=== PATIENT | female | born 1965 | race Two or more races ===

== ENCOUNTER → 2017-03-09 | Outpatient (CLI) | payer MEDICAID ==
[~2017-03-09] VITALS: Ht 170.2 cm; Wt 112.5 kg
== END | disposition home or self-care (01) ==
LOC: Rad HDHVI 13:20
PROVIDERS: ATTEND Internal Medicine Cardiovascular Disease
DX: Z01.810 Encounter for preprocedural cardiovascular examination (principal); I10 Essential (primary) hypertension; J20.9 Acute bronchitis, unspecified; R05 Cough; F17.210 Nicotine dependence, cigarettes, uncomplicated
CPT/HCPCS: 93017

== ENCOUNTER → 2017-03-10 | Outpatient (CLI) | payer MEDICAID | END | disposition home or self-care (01) | LOC: Rad HDHVI 10:03 | PROVIDERS: ATTEND Internal Medicine Cardiovascular Disease | DX: Z01.818 Encounter for other preprocedural examination (principal); R94.31 Abnormal electrocardiogram [ECG] [EKG] | CPT/HCPCS: 93306 ==

== ENCOUNTER 2017-07-05 11:12 | Emergency (ER) | payer MEDICAID ==
[~2017-07-05] VITALS: Ht 170.2 cm; Wt 116.1 kg
[2017-07-05 11:44] VITALS: BP 119/71
== END 2017-07-05 12:55 | disposition home or self-care (01) ==
LOC: ER 11:12
DX: J20.9 Acute bronchitis, unspecified (principal); N39.0 Urinary tract infection, site not specified; E11.9 Type 2 diabetes mellitus without complications; K21.9 Gastro-esophageal reflux disease without esophagitis; F17.210 Nicotine dependence, cigarettes, uncomplicated

== ENCOUNTER 2017-09-08 11:58 | Emergency (ER) | payer MEDICAID ==
[~2017-09-08] VITALS: Ht 170.2 cm; Wt 112.5 kg
[2017-09-08 12:42] LABS: Basophils # (auto) 0.1 uL; Eosinophils # (auto) 0.1 uL; Eosinophils % (auto) 1.6 % (0.0-7.0); Hematocrit 42.8 % (36.0-46.0); Hemoglobin 14.1 g/dL (12.2-16.2); Lymphocytes # (auto) 2.4 uL; Lymphocytes % (auto) 26.5 % (10.0-50.0); Mean Corpuscular Hgb Conc. 32.9 g/dL (32.0-36.0); Mean Corpuscular Volume 85.1 fL (80.0-100.0); Monocytes # (auto) 0.6 uL; Monocytes % (auto) 7.2 % (0.0-12.0); Neutrophils # (auto) 5.7 uL; Neutrophils % (auto) 63.7 % (37.0-80.0); Nucleated Red Blood Cells % 0.1 %; Platelet Count (auto) 229 10^3/uL (140-450); Red Blood Cells 5.03 10^6/uL (4.0-5.20); White Blood Cell 8.9 10^3/uL (4.4-10.8)
[2017-09-08 13:04] LABS: Alanine Aminotransferase 52 U/L (13-56); Albumin 3.3 g/dL (3.4-5.0); Alkaline Phosphatase 106 U/L (45-117); Anion Gap 6 (5-15); Aspartate Aminotransferase 35 U/L (15-37); BUN/Creatinine Ratio 36.4; Bilirubin, Total 0.4 mg/dL (0.2-1.0); Blood Urea Nitrogen 20 mg/dL (7-18); Calcium 8.5 mg/dL (8.5-10.1); Carbon Dioxide 25 mmol/L (21-32); Chloride 108 mmol/L (98-107); GFR African American 151 mL/min; GFR Non-African American 125 mL/min; Glucose 137 mg/dL (74-106); Potassium 4.4 mmol/L (3.5-5.1); Sodium 139 mmol/L (136-145); Total Protein 7.6 g/dL (6.4-8.2)
[2017-09-08 16:07] VITALS: BP 104/63
== END 2017-09-08 16:10 | disposition home or self-care (01) ==
LOC: ER 11:58
DX: F41.9 Anxiety disorder, unspecified (principal); I11.0 Hypertensive heart disease with heart failure; I50.9 Heart failure, unspecified; K21.9 Gastro-esophageal reflux disease without esophagitis; E11.9 Type 2 diabetes mellitus without complications; Z87.891 Personal history of nicotine dependence
CPT/HCPCS: 36415; 71046; 80053; 83880; 84484; 85025; 93005

== ENCOUNTER 2018-02-17 20:01 | Inpatient (IN) | payer MEDICAID ==
[~2018-02-17] VITALS: Ht 170.2 cm; Wt 87.1 kg
[2018-02-17 21:57] LABS: Basophils # (auto) 0 uL; Basophils % (auto) 0.4 % (0.0-2.0); Eosinophils # (auto) 0 uL; Eosinophils % (auto) 0.3 % (0.0-7.0); Hematocrit 43.6 % (36.0-46.0); Hemoglobin 14.7 g/dL (12.2-16.2); Lymphocytes # (auto) 1.6 uL; Lymphocytes % (auto) 15.6 % (10.0-50.0); Mean Corpuscular Hemoglobin 28.8 pg (28.0-32.0); Mean Corpuscular Hgb Conc. 33.7 g/dL (32.0-36.0); Mean Corpuscular Volume 85.5 fL (80.0-100.0); Monocytes # (auto) 0.4 uL; Monocytes % (auto) 4.2 % (0.0-12.0); Neutrophils # (auto) 8.2 uL; Neutrophils % (auto) 79.5 % (37.0-80.0); Platelet Count (auto) 217 10^3/uL (140-450); White Blood Cell 10.4 10^3/uL (4.4-10.8)
[2018-02-17 22:14] LABS: Albumin 3.5 g/dL (3.4-5.0); Calcium 8.5 mg/dL (8.5-10.1); Potassium 4.1 mmol/L (3.5-5.1)
[2018-02-17 22:17] LABS: Bilirubin, Total 0.4 mg/dL (0.2-1.0); Total Protein 7.2 g/dL (6.4-8.2)
[2018-02-18] LABS: Urine Bacteria FEW /hpf (None Seen); Urine Blood Negative /uL (Negative); Urine Mucus FEW (None Seen); Urine Specific Gravity 1.029 (1.001-1.035); Urine WBC 21 /hpf (0 - 5)
[2018-02-18] MEDS ORDERED: ONDANSETRON HCL 4 MG/2 ML VIAL IV ONE (01:30)
[2018-02-18] MEDS ORDERED: MEPERIDINE HCL (50 MG/ML) 1 ML VIAL IV ONE (01:30)
[2018-02-18] MEDS ORDERED: LORazepam 0.5 MG TAB PO ONE (02:00)
[2018-02-18] MEDS ORDERED: NITROGLYCERIN 0.4 MG SL TAB SL PRN (07:45)
[2018-02-18] MEDS ORDERED: HYDROmorphone HCL 2 MG/ML VL IV PRN (07:45)
[2018-02-18] MEDS ORDERED: LORazepam 0.5 MG TAB PO PRN (07:45)
[2018-02-18] MEDS ORDERED: DEXTROSE (50%) 50ML SYRG IV PRN (07:45)
[2018-02-18] MEDS ORDERED: PROMETHAZINE HCL 25 MG/ML 1ML IV PRN (07:45)
[2018-02-18] MEDS ORDERED: MORPHINE SULF(PF) 0.5MG/ML 10ML VIAL IV PRN (07:45)
[2018-02-18] MEDS ORDERED: ACETAMINOPHEN 500 MG TAB PO PRN (07:45)
[2018-02-18] MEDS: SODIUM CHLORIDE 0.9% 1,000 ML IV SCH ×3 (08:15→19:42)
[2018-02-18] MEDS: HYDROcodone-ACET 5/325MG TAB PO PRN ×3 (08:16→21:34)
[2018-02-18] MEDS ORDERED: GASTROGRAFIN 30 ML SOL ONE (08:36)
[2018-02-18] MEDS ORDERED: IOHEXOL 300 MG/ML 100ML BOTTLE IJ ONE (08:37)
[2018-02-18] MEDS: cefTRIAXone 1GM/10ml IVPUSH 10 ML IV SCH (08:52)
[2018-02-18 08:53] LABS: INR 1.11 (0.9-1.15); Partial Thromboplastin Time 34.5 sec (23.78-33.04); Prothrombin Time 11.8 sec (9.27-12.13)
[2018-02-18 09:12] LABS: CRP High Sensitivity 0.1 mg/dL (< 0.3)
[2018-02-18] MEDS: FAMOTIDINE 20 MG TAB PO SCH ×2 (10:34→21:34)
[2018-02-18] MEDS: InsuLIN REG 1unit/0.01ml Soln (100units/ml) SC SCH ×2 (12:00→18:00)
[2018-02-18] MEDS: ACCU-CHEK COMFORT CURVE STRIP VI SCH ×3 (12:11→21:34)
[2018-02-18 17:00] VITALS: BP 148/87
[2018-02-18] MEDS ORDERED: OMEP20TA PO (19:00)
[2018-02-18] MEDS ORDERED: POTA10TA34 PO (19:01)
[2018-02-18 20:00] VITALS: BP 146/91
[2018-02-18] MEDS: TEMAZEPAM 15 MG CAP PO PRN (21:33)
[2018-02-18 22:00] VITALS: BP 146/91
[2018-02-19] MEDS: ACCU-CHEK COMFORT CURVE STRIP VI SCH ×4 (00:25→17:54)
[2018-02-19 05:00] VITALS: BP 135/84
[2018-02-19] MEDS: InsuLIN REG 1unit/0.01ml Soln (100units/ml) SC SCH ×4 (05:36→17:54)
[2018-02-19 06:36] LABS: Basophils # (auto) 0.1 uL; Basophils % (auto) 0.7 % (0.0-2.0); Eosinophils # (auto) 0.2 uL; Eosinophils % (auto) 2.5 % (0.0-7.0); Hematocrit 38.6 % (36.0-46.0); Hemoglobin 12.5 g/dL (12.2-16.2); Lymphocytes # (auto) 2.9 uL; Lymphocytes % (auto) 33.5 % (10.0-50.0); Mean Corpuscular Hgb Conc. 32.5 g/dL (32.0-36.0); Mean Corpuscular Volume 86.1 fL (80.0-100.0); Monocytes # (auto) 0.7 uL; Monocytes % (auto) 7.9 % (0.0-12.0); Neutrophils # (auto) 4.7 uL; Neutrophils % (auto) 55.4 % (37.0-80.0); Nucleated Red Blood Cells % 0.1 %; Platelet Count (auto) 171 10^3/uL (140-450); Red Blood Cells 4.48 10^6/uL (4.0-5.20); Red Cell Distribution Width 14.8 % (11.8-14.3); White Blood Cell 8.5 10^3/uL (4.4-10.8)
[2018-02-19 07:20] LABS: Albumin 2.8 g/dL (3.4-5.0); BUN/Creatinine Ratio 16.3; Bilirubin, Total 0.6 mg/dL (0.2-1.0); Calcium 8.3 mg/dL (8.5-10.1); Potassium 4.7 mmol/L (3.5-5.1); Total Protein 5.7 g/dL (6.4-8.2)
[2018-02-19] MEDS: cefTRIAXone 1GM/10ml IVPUSH 10 ML IV SCH (08:47)
[2018-02-19] MEDS: HYDROcodone-ACET 5/325MG TAB PO PRN ×2 (08:48→15:16)
[2018-02-19 09:00] VITALS: BP 143/90
[2018-02-19] MEDS: FAMOTIDINE 20 MG TAB PO SCH ×2 (10:59→21:30)
[2018-02-19 13:00] VITALS: BP_SYST 141; BP_SYST 155; BP_DIAS 76; BP_DIAS 88
[2018-02-19] MEDS: SODIUM CHLORIDE 0.9% 1,000 ML IV SCH ×2 (13:44→23:44)
[2018-02-19 17:00] VITALS: BP 137/83
[2018-02-19 20:00] VITALS: BP 139/75
[2018-02-19] MEDS ORDERED: KETOROLAC TROMETH 30 MG/ML 1ML VIAL IV ONE (20:45)
[2018-02-19] MEDS: TEMAZEPAM 15 MG CAP PO PRN (21:30)
[2018-02-20] MEDS: ACCU-CHEK COMFORT CURVE STRIP VI SCH ×4 (00:08→17:31)
[2018-02-20] MEDS: SODIUM CHLORIDE 0.9% 1,000 ML IV SCH (00:46)
[2018-02-20] MEDS: HYDROcodone-ACET 5/325MG TAB PO PRN ×3 (01:25→14:42)
[2018-02-20 05:59] LABS: Basophils # (auto) 0.1 uL; Basophils % (auto) 0.8 % (0.0-2.0); Eosinophils # (auto) 0.1 uL; Hematocrit 37.7 % (36.0-46.0); Hemoglobin 12.5 g/dL (12.2-16.2); Lymphocytes # (auto) 2.6 uL; Lymphocytes % (auto) 21.5 % (10.0-50.0); Mean Corpuscular Hemoglobin 28.5 pg (28.0-32.0); Mean Corpuscular Hgb Conc. 33.2 g/dL (32.0-36.0); Mean Corpuscular Volume 85.7 fL (80.0-100.0); Monocytes # (auto) 1.1 uL; Monocytes % (auto) 8.6 % (0.0-12.0); Neutrophils # (auto) 8.4 uL; Neutrophils % (auto) 68.1 % (37.0-80.0); Nucleated Red Blood Cells % 0.1 %; Platelet Count (auto) 178 10^3/uL (140-450); Red Cell Distribution Width 14.5 % (11.8-14.3); White Blood Cell 12.3 10^3/uL (4.4-10.8)
[2018-02-20 06:00] VITALS: BP 121/77
[2018-02-20] MEDS: InsuLIN REG 1unit/0.01ml Soln (100units/ml) SC SCH ×4 (06:00→17:31)
[2018-02-20 06:15] LABS: BUN/Creatinine Ratio 16.7; Calcium 7.9 mg/dL (8.5-10.1); Magnesium 2.3 mg/dL (1.6-2.6); Potassium 4.1 mmol/L (3.5-5.1)
[2018-02-20 08:00] VITALS: BP 132/73
[2018-02-20] MEDS ORDERED: GADOPENTETATE DIMEGLUMINE (10MMOL/20 ML) VIAL IV ONE (09:33)
[2018-02-20] MEDS: FAMOTIDINE 20 MG TAB PO SCH ×2 (10:53→21:49)
[2018-02-20] MEDS: cefTRIAXone 1GM/10ml IVPUSH 10 ML IV SCH (10:53)
[2018-02-20 12:00] VITALS: BP 130/82
[2018-02-20] MEDS ORDERED: LEVOFLOXACIN 500MG 100 ML IV ONE (13:30)
[2018-02-20] MEDS ORDERED: HYDROcodone-ACET 5/325MG TAB PO PRN (14:30)
[2018-02-20] MEDS ORDERED: POLYETHYLENE GLYCOL 17 GM PWDR PO ONE (15:30)
[2018-02-20 16:02] LABS: INR 1.15 (0.9-1.15); Partial Thromboplastin Time 35.2 sec (23.78-33.04); Prothrombin Time 12.2 sec (9.27-12.13)
[2018-02-20 17:00] VITALS: BP 121/73
[2018-02-20 21:37] VITALS: BP 106/67
[2018-02-20] MEDS: TEMAZEPAM 15 MG CAP PO PRN (21:49)
[2018-02-21] MEDS: HYDROcodone-ACET 5/325MG TAB PO PRN (03:00)
[2018-02-21 04:49] VITALS: BP 110/66
[2018-02-21] MEDS: SODIUM CHLORIDE 0.9% 1,000 ML IV SCH ×2 (05:44→06:07)
[2018-02-21] MEDS: InsuLIN REG 1unit/0.01ml Soln (100units/ml) SC SCH ×4 (06:00→18:00)
[2018-02-21] MEDS: ACCU-CHEK COMFORT CURVE STRIP VI SCH ×4 (06:21→18:23)
[2018-02-21 09:00] VITALS: BP 155/78
[2018-02-21] MEDS: LEVOFLOXACIN 500MG 100 ML IV SCH (09:59)
[2018-02-21] MEDS: FAMOTIDINE 20 MG TAB PO SCH ×2 (10:00→22:04)
[2018-02-21] MEDS ORDERED: MORPHINE SULFATE 8mg/ml INJ SDV IV PRN (11:15)
[2018-02-21] MEDS ORDERED: MEPERIDINE HCL (25 MG/ML) 1ML VIAL IM PRN (11:30)
[2018-02-21] MEDS ORDERED: MORPHINE SULF INJ 2 MG/ML SYRINGE 1ML IV PRN (11:30)
[2018-02-21] MEDS ORDERED: MEPERIDINE HCL (50 MG/ML) 1 ML VIAL ONE (11:45)
[2018-02-21] MEDS ORDERED: MEPERIDINE HCL (50 MG/ML) 1 ML VIAL IM PRN (11:45)
[2018-02-21] MEDS ORDERED: MEPERIDINE HCL (50 MG/ML) 1 ML VIAL IV PRN (12:00)
[2018-02-21 13:00] VITALS: BP 141/83
[2018-02-21] MEDS ORDERED: ceFAZolin 1GM/50ML 50 ML IV ONE (13:17)
[2018-02-21] MEDS ORDERED: PROPOFOL 10 MG/ML 20 ML IV ONE (13:29)
[2018-02-21] MEDS ORDERED: ROCURONIUM 10MG/ML 10ML VIAL IV ONE ×2 (13:29→13:30)
[2018-02-21] MEDS ORDERED: fentaNYL CITRATE 100 MCG/2 ML VL ONE ×2 (13:29→14:56)
[2018-02-21] MEDS ORDERED: MIDAZOLAM HCL 1MG/1ML-2 ML VIAL ONE (13:34)
[2018-02-21] MEDS ORDERED: LACTATED RINGER'S 1,000 ML IV SCH (15:06)
[2018-02-21] MEDS ORDERED: ePHEDrine SULFATE 50 MG/ML AMP IV PRN (15:15)
[2018-02-21] MEDS ORDERED: hydrALAZINE HCL 20 MG/ML VL IV PRN (15:15)
[2018-02-21] MEDS ORDERED: ONDANSETRON HCL 4 MG/2 ML VIAL IV ONE (15:15)
[2018-02-21] MEDS ORDERED: ONDANSETRON HCL 4 MG/2 ML VIAL IV PRN (15:15)
[2018-02-21] MEDS ORDERED: ACETAMINOPHEN IV 100 ML IV ONE (15:15)
[2018-02-21] MEDS: fentaNYL CITRATE 100 MCG/2 ML VL IV PRN ×4 (15:24→16:10)
[2018-02-21 17:00] VITALS: BP 139/85
[2018-02-21] MEDS: LACTATED RINGER'S 1,000 ML IV SCH (17:34)
[2018-02-21] MEDS: MEPERIDINE HCL (50 MG/ML) 1 ML VIAL IV PRN ×2 (18:41→22:45)
[2018-02-21 21:49] VITALS: BP 133/85
[2018-02-21] MEDS: TEMAZEPAM 15 MG CAP PO PRN (22:10)
[2018-02-22] MEDS: InsuLIN REG 1unit/0.01ml Soln (100units/ml) SC SCH ×4 (00:56→18:00)
[2018-02-22] MEDS: ACCU-CHEK COMFORT CURVE STRIP VI SCH ×4 (00:56→18:00)
[2018-02-22] MEDS: LACTATED RINGER'S 1,000 ML IV SCH ×2 (02:40→13:15)
[2018-02-22] MEDS: MEPERIDINE HCL (50 MG/ML) 1 ML VIAL IV PRN ×2 (02:47→06:50)
[2018-02-22 05:00] VITALS: BP 118/68
[2018-02-22 05:54] LABS: Basophils # (auto) 0 uL; Basophils % (auto) 0.1 % (0.0-2.0); Eosinophils # (auto) 0 uL; Hematocrit 33.8 % (36.0-46.0); Hemoglobin 11.3 g/dL (12.2-16.2); Lymphocytes % (auto) 9.2 % (10.0-50.0); Mean Corpuscular Hemoglobin 28.7 pg (28.0-32.0); Mean Corpuscular Hgb Conc. 33.3 g/dL (32.0-36.0); Mean Corpuscular Volume 86.2 fL (80.0-100.0); Monocytes # (auto) 0.9 uL; Monocytes % (auto) 8.3 % (0.0-12.0); Neutrophils # (auto) 8.9 uL; Neutrophils % (auto) 82.4 % (37.0-80.0); Platelet Count (auto) 215 10^3/uL (140-450); Red Blood Cells 3.92 10^6/uL (4.0-5.20); Red Cell Distribution Width 14.4 % (11.8-14.3); White Blood Cell 10.8 10^3/uL (4.4-10.8)
[2018-02-22 06:17] LABS: Albumin 2.2 g/dL (3.4-5.0); BUN/Creatinine Ratio 19.4; Potassium 4.8 mmol/L (3.5-5.1)
[2018-02-22 06:20] LABS: Bilirubin, Total 0.4 mg/dL (0.2-1.0); Total Protein 5.7 g/dL (6.4-8.2)
[2018-02-22 09:00] VITALS: BP 134/41
[2018-02-22] MEDS ORDERED: SIMETHICONE 80 MG CHEWABLE TABLET PO PRN (09:45)
[2018-02-22] MEDS ORDERED: HYDROcodone-ACET 5/325MG TAB PO PRN (09:45)
[2018-02-22] MEDS ORDERED: DOCUSATE SOD 100 MG CAP PO SCH (10:00)
[2018-02-22] MEDS: LEVOFLOXACIN 500MG 100 ML IV SCH (10:55)
[2018-02-22] MEDS: FAMOTIDINE 20 MG TAB PO SCH (10:56)
[2018-02-22] MEDS: HYDROcodone-ACET 5/325MG TAB PO PRN ×2 (12:59→18:40)
[2018-02-22 13:00] VITALS: BP 133/86
[2018-02-22 17:00] VITALS: BP 138/78
== END 2018-02-22 19:07 | disposition home or self-care (01) | DRG 513 ==
LOC: ER 20:01 → TELE 20:02 → TELE-WESTW 02-18 15:09
PROVIDERS: ADMIT Internal Medicine; ATTEND Internal Medicine
PROC: 0UT00ZZ Resection of Right Ovary, Open Approach (ICD-10-PCS; 2018-02-21)
PROC: 0UT50ZZ Resection of Right Fallopian Tube, Open Approach (ICD-10-PCS; principal; 2018-02-21 13:24)
DX: N83.511 Torsion of right ovary and ovarian pedicle (principal); I11.0 Hypertensive heart disease with heart failure; I50.9 Heart failure, unspecified; N39.0 Urinary tract infection, site not specified; E66.01 Morbid (severe) obesity due to excess calories; E11.9 Type 2 diabetes mellitus without complications; B96.89 Other specified bacterial agents as the cause of diseases classified elsewhere; F17.210 Nicotine dependence, cigarettes, uncomplicated; K21.9 Gastro-esophageal reflux disease without esophagitis; M54.5 Low back pain; K80.20 Calculus of gallbladder without cholecystitis without obstruction; N83.209 Unspecified ovarian cyst, unspecified side; N94.89 Other specified conditions associated with female genital organs and menstrual cycle; Z80.0 Family history of malignant neoplasm of digestive organs; Z80.8 Family history of malignant neoplasm of other organs or systems; Z98.84 Bariatric surgery status; Z90.49 Acquired absence of other specified parts of digestive tract; Z68.30 Body mass index [BMI] 30.0-30.9, adult
CPT/HCPCS: 36415; 71046; 72195; 74176; 74177; 76856; 80048; 80053; 80061; 81001; 82150; 82378; 82962; 83036; 83690; 83735; 84702; 85025; 85610; 85652; 85730; 86141; 86301; 86304; 86850; 86900; 86901; 86920; 87086; 87088; 87186; 96374; 96375; J0131; J0690; J1815; J1885; J1956; J2250; J2405; J2704

== ENCOUNTER 2019-07-16 14:40 | Emergency (ER) | payer MEDICAID ==
[~2019-07-16] VITALS: Ht 170.2 cm; Wt 64.0 kg
[~2019-07-16 14:40] MED LIST: OMEP20TA PO
[2019-07-16 16:34] LABS: Urine Bacteria NONE SEEN /hpf (None Seen); Urine Blood Negative /uL (Negative); Urine Mucus FEW (None Seen); Urine Specific Gravity 1.026 (1.001-1.035); Urine WBC 4 /hpf (0 - 5)
[2019-07-16] MEDS ORDERED: cefTRIAXone 1GM/50ML D5W 50 ML IV ONE (17:00)
[2019-07-16] MEDS ORDERED: SODIUM CHLORIDE 0.9% 1,000 ML IV ONE (17:00)
[2019-07-16 18:37] LABS: Basophils # (auto) 0.1 uL; Basophils % (auto) 1.1 % (0.0-2.0); Eosinophils # (auto) 0.1 uL; Eosinophils % (auto) 2.1 % (0.0-7.0); Hematocrit 41.4 % (36.0-46.0); Hemoglobin 13.6 g/dL (12.2-16.2); Lymphocytes # (auto) 1.7 uL; Mean Corpuscular Hemoglobin 28.8 pg (28.0-32.0); Mean Corpuscular Hgb Conc. 32.8 g/dL (32.0-36.0); Mean Corpuscular Volume 87.7 fL (80.0-100.0); Monocytes # (auto) 0.7 uL; Monocytes % (auto) 11.9 % (0.0-12.0); Neutrophils % (auto) 54.9 % (37.0-80.0); Nucleated Red Blood Cells % 0.2 %; Platelet Count (auto) 190 10^3/uL (140-450); Red Blood Cells 4.73 10^6/uL (4.0-5.20); Red Cell Distribution Width 13.6 % (11.8-14.3); White Blood Cell 5.5 10^3/uL (4.4-10.8)
[2019-07-16 18:53] LABS: Albumin 3.4 g/dL (3.4-5.0); Calcium 8.1 mg/dL (8.5-10.1); Potassium 4.3 mmol/L (3.5-5.1)
[2019-07-16 18:57] LABS: Bilirubin, Total 0.2 mg/dL (0.2-1.0); Total Protein 6.7 g/dL (6.4-8.2)
[2019-07-16 21:35] VITALS: BP 146/88
== END 2019-07-16 22:04 | disposition home or self-care (01) ==
LOC: ER 14:42
DX: S29.012A Strain of muscle and tendon of back wall of thorax, initial encounter (principal); S39.012A Strain of muscle, fascia and tendon of lower back, initial encounter; R07.89 Other chest pain; I11.0 Hypertensive heart disease with heart failure; I50.9 Heart failure, unspecified; E11.9 Type 2 diabetes mellitus without complications; K21.9 Gastro-esophageal reflux disease without esophagitis; Z87.891 Personal history of nicotine dependence; W22.8XXA Striking against or struck by other objects, initial encounter; Y93.89 Activity, other specified; Y92.89 Other specified places as the place of occurrence of the external cause; Y99.8 Other external cause status
CPT/HCPCS: 36415; 71045; 72070; 72100; 80053; 81001; 85025; 99284; J7030; 93005

== ENCOUNTER 2019-11-06 13:47 | Emergency (ER) | payer MEDICAID ==
[~2019-11-06] VITALS: Ht 170.2 cm; Wt 63.5 kg
[2019-11-06] MEDS ORDERED: IBUPROFEN 800 MG TAB PO ONE (14:30)
[2019-11-06 16:33] VITALS: BP 134/86
[2019-11-06 16:56] LABS: Urine Bacteria NONE SEEN /hpf (None Seen); Urine Blood Negative /uL (Negative); Urine Mucus FEW (None Seen); Urine Specific Gravity 1.031 (1.001-1.035); Urine WBC 2 /hpf (0 - 5)
== END 2019-11-06 16:40 | disposition home or self-care (01) ==
LOC: ER 13:47
DX: J20.9 Acute bronchitis, unspecified (principal); I11.0 Hypertensive heart disease with heart failure; I50.9 Heart failure, unspecified; E11.9 Type 2 diabetes mellitus without complications; K21.9 Gastro-esophageal reflux disease without esophagitis; Z98.84 Bariatric surgery status; Z87.891 Personal history of nicotine dependence
CPT/HCPCS: 71046; 81001; 87804

== ENCOUNTER 2020-12-20 18:20 | Emergency (ER) | payer MEDICAID ==
[~2020-12-20] VITALS: Ht 172.7 cm; Wt 65.8 kg
[2020-12-20] MEDS ORDERED: ACETAMINOPHEN 325 MG TAB PO ONE (21:00)
[2020-12-20] MEDS ORDERED: HYDROcodone-ACET 7.5/325MG TAB PO ONE (21:00)
[2020-12-20 21:30] VITALS: BP 153/96
[2020-12-20 22:16] LABS: Basophils # (auto) 0.1 10 ^3/uL (0-0.2); Basophils % (auto) 0.6 % (0.0-2.0); Eosinophils # (auto) 0.1 10 ^3/uL (0-0.8); Eosinophils % (auto) 0.5 % (0.0-7.0); Hematocrit 37.6 % (36.0-46.0); Hemoglobin 12.3 g/dL (12.2-16.2); Lymphocytes # (auto) 1.8 10 ^3/uL (0.4-5.4); Lymphocytes % (auto) 19.2 % (10.0-50.0); Mean Corpuscular Hemoglobin 27.4 pg (28.0-32.0); Mean Corpuscular Hgb Conc. 32.7 g/dL (32.0-36.0); Mean Corpuscular Volume 83.8 fL (80.0-100.0); Monocytes # (auto) 0.7 10 ^3/uL (0-1.3); Monocytes % (auto) 7.8 % (0.0-12.0); Neutrophils # (auto) 6.9 10 ^3/uL (1.6-8.6); Neutrophils % (auto) 71.9 % (37.0-80.0); Nucleated Red Blood Cells % 0.2 %; Platelet Count (auto) 188 10^3/uL (140-450); Red Blood Cells 4.49 10^6/uL (4.0-5.20); Red Cell Distribution Width 14.2 % (11.8-14.3); White Blood Cell 9.6 10^3/uL (4.4-10.8)
[2020-12-20 22:40] LABS: Alanine Aminotransferase 24 U/L (13-56); Albumin 3.3 g/dL (3.4-5.0); Anion Gap 4 (5-15); Blood Alcohol < 3.0 mg/dL (0-5); Blood Urea Nitrogen 16 mg/dL (7-18); Calcium 7.9 mg/dL (8.5-10.1); Carbon Dioxide 24 mmol/L (21-32); Chloride 116 mmol/L (98-107); Glucose 76 mg/dL (74-106); Potassium 4.4 mmol/L (3.5-5.1); Sodium 144 mmol/L (136-145)
[2020-12-20 22:43] LABS: Alkaline Phosphatase 135 U/L (45-117); Aspartate Aminotransferase 25 U/L (15-37); BUN/Creatinine Ratio 42.1; Bilirubin, Total 0.4 mg/dL (0.2-1.0); GFR African American 228 mL/min; GFR Non-African American 188 mL/min; Total Protein 6.4 g/dL (6.4-8.2)
== END 2020-12-20 22:48 | disposition home or self-care (01) ==
LOC: ER 18:21
DX: S00.83XA Contusion of other part of head, initial encounter (principal); I11.0 Hypertensive heart disease with heart failure; I50.9 Heart failure, unspecified; K21.9 Gastro-esophageal reflux disease without esophagitis; F17.210 Nicotine dependence, cigarettes, uncomplicated; R41.82 Altered mental status, unspecified; M25.562 Pain in left knee; M25.522 Pain in left elbow; W18.00XA Striking against unspecified object with subsequent fall, initial encounter; Y93.89 Activity, other specified; Y92.89 Other specified places as the place of occurrence of the external cause; Y99.8 Other external cause status
CPT/HCPCS: 36415; 70450; 70486; 73080; 73562; 80053; 80320; 85025

== ENCOUNTER 2022-12-01 13:04 | Emergency (ER) | payer MEDICAID ==
[~2022-12-01] VITALS: Ht 170.2 cm; Wt 72.7 kg
[2022-12-01 13:26] LABS: Basophils # (auto) 0.1 10 ^3/uL (0-0.2); Eosinophils # (auto) 0.1 10 ^3/uL (0-0.8); Neutrophils # (auto) 3.7 10 ^3/uL (1.6-8.6)
[2022-12-01 13:28] LABS: Basophils % (auto) 1.4 % (0.0-2.0); Eosinophils % (auto) 1.5 % (0.0-7.0); Hematocrit 35.6 % (36.0-46.0); Hemoglobin 11.6 g/dL (12.2-16.2); Lymphocytes # (auto) 1.6 10 ^3/uL (0.4-5.4); Lymphocytes % (auto) 25.8 % (10.0-50.0); Mean Corpuscular Hemoglobin 24.3 pg (28.0-32.0); Mean Corpuscular Hgb Conc. 32.6 g/dL (32.0-36.0); Mean Corpuscular Volume 74.5 fL (80.0-100.0); Monocytes # (auto) 0.6 10 ^3/uL (0-1.3); Monocytes % (auto) 10.4 % (0.0-12.0); Neutrophils % (auto) 60.9 % (37.0-80.0); Nucleated Red Blood Cells % 0.4 %; Red Blood Cells 4.78 10^6/uL (4.0-5.20)
[2022-12-01 13:43] LABS: INR 1.03 (0.9-1.15); Partial Thromboplastin Time 31.8 sec (24.6-33.4)
[2022-12-01 14:01] LABS: Albumin 3.1 g/dL (3.4-5.0); Calcium 8.2 mg/dL (8.5-10.1); Magnesium 2.7 mg/dL (1.6-2.6); Potassium 4.4 mmol/L (3.5-5.1)
[2022-12-01 14:05] LABS: BUN/Creatinine Ratio 18.5 (10.0-20.0); Bilirubin, Total 0.3 mg/dL (0.2-1.0); Total Protein 6.2 g/dL (6.4-8.2)
[2022-12-01] MEDS ORDERED: BACL10TA PO (16:36)
[2022-12-01] MEDS ORDERED: KETOROLAC TROMETH 30 MG/ML 1ML VIAL IM ONE (16:45)
[2022-12-01 17:16] VITALS: BP 119/79
== END 2022-12-01 17:17 | disposition home or self-care (01) ==
LOC: ER 13:04
DX: R07.89 Other chest pain (principal); I11.0 Hypertensive heart disease with heart failure; I50.9 Heart failure, unspecified; E11.9 Type 2 diabetes mellitus without complications; K21.9 Gastro-esophageal reflux disease without esophagitis; F17.210 Nicotine dependence, cigarettes, uncomplicated
CPT/HCPCS: 36415; 71045; 80053; 83735; 83880; 84484; 85025; 85610; 85730; 93005; 96372; 99285; J1885

== ENCOUNTER 2023-11-08 06:30 | Emergency (ER) | payer MEDICAID, OTHER ==
[~2023-11-08] VITALS: Ht 170.2 cm; Wt 73.1 kg
[~2023-11-08 06:30] MED LIST changes: +BACL10TA PO
[2023-11-08] MEDS: HYDROcodone-ACET 10/325MG TAB PO ONE (07:23)
[2023-11-08] MEDS ORDERED: IBU600T PO (09:43)
[2023-11-08] MEDS ORDERED: LEVO500T91 PO (09:43)
[2023-11-08 10:32] VITALS: BP 164/83; PULSE 77; RESP 18; TEMP 98.2; O2SAT 97
== END 2023-11-08 10:34 | disposition home or self-care (01) ==
LOC: ER 06:30
DX: S29.011A Strain of muscle and tendon of front wall of thorax, initial encounter (principal); J06.9 Acute upper respiratory infection, unspecified; F17.210 Nicotine dependence, cigarettes, uncomplicated; M54.2 Cervicalgia; R51.9 Headache, unspecified; R09.89 Other specified symptoms and signs involving the circulatory and respiratory systems; I11.0 Hypertensive heart disease with heart failure; I50.9 Heart failure, unspecified; E11.9 Type 2 diabetes mellitus without complications; K21.9 Gastro-esophageal reflux disease without esophagitis; V49.9XXA Car occupant (driver) (passenger) injured in unspecified traffic accident, initial encounter; W22.10XA Striking against or struck by unspecified automobile airbag, initial encounter; Y93.89 Activity, other specified; Y92.89 Other specified places as the place of occurrence of the external cause; Y99.8 Other external cause status
CPT/HCPCS: 70450; 71111; 72125

== ENCOUNTER → 2024-03-26 | Outpatient (CLI) | payer MEDICAID ==
[~2024-03-26] MED LIST changes: +IBU600T PO; +LEVO500T91 PO
== END | disposition home or self-care (01) ==
LOC: XYW 14:34
PROVIDERS: ATTEND Student in an Organized Health Care Education/Training Program
DX: I07.1 Rheumatic tricuspid insufficiency (principal); R07.9 Chest pain, unspecified
CPT/HCPCS: 93306

== ENCOUNTER → 2024-12-18 | Outpatient (CLI) | payer MEDICAID ==
[~2024-12-18] VITALS: Ht 170.2 cm; Wt 75.3 kg
[2024-12-18] MEDS: REGADENOSON 0.4 MG/5 ML SYRG IV ONE ×2 (12:05→12:11)
--- NOTE | 2024-12-19 07:36 | DVHSR ---
APPROVED REPORT Exam: Nuclear Stress Test Indication: Pre-Operative CV evaluation Stress Tech: Prisca Rudd Ht: 5 ft 7 in Wt: 166 lbs BSA: 1.87 m2 HR: 63 bpm BP: 177/91 mmHg BMI: 25.99 Rhythm: NSR Medical History Medical History: Heart Murmur, DM2, Gastric Bypass, Current Smoker, HTN Allergies: No known drug allergies Stress Test Details Stress Test: Pharmacologic stress testing performed using 0.4 mg of regadenoson per 5 mL given IV ov er 10 seconds. Reason for pharmacologic stress test: Cardiac Clearance. HR Resting HR: 63 bpmMax Heart Rate (APMHR): 163.314893 bpm Max HR Achieved: 93 bpmTarget HR (85% APMHR): 138.658591 bpm % of APMHR: 57.06 Recovery HR: 71 bpm BP Resting BP: 177/91 mmHg Recovery BP: 135/76 mmHg ECG Resting ECG: NSR Clinical Reason for Termination: Completed protocol Nurse Comments Uneventful stress test performed per protocol. Patient tolerated well and ambulated back to [facility] with tech in stable condition. Stress ECG Conclusion lvef 74% normal perfusion scan no stress induced ischemia NM EXAM: Myocardial Perfusion REST/STRESS Imaging Protocol: Rest Tc-99m/Stress Tc-99m 1 day Resting Data Rest SPECT myocardial perfusion imaging was performed in supine position 60 minutes following the int ravenous injection of 12 mCi of Tc-99m Sestamibi. Time of rest injection: 1034 Time of rest imagin Administration Route: IV Administration Site: Left Arm Pharmacologic Stress Pharmacologic stress test was performed by injecting Regadenoson 0.4 mg IV push followed by the intra venous injection of 31.2 mCi of Tc-99m Sestamibi. Time of stress injection: 1202 Time of stress imagin Administration Route: IV Administration Site: Left Arm Gated Stress SPECT was performed 60 minutes after stress injection. The images were gated to evaluate regional wall motion and calculate left ventricular ejection fracti on. Stress only was performed in the Supine position. Nuclear Conclusion Nuclear Findings: negative for ischemia lvef 74% normal perfusion scan no stress induced ischemia
== END | disposition home or self-care (01) ==
LOC: XYW 09:57
PROVIDERS: ATTEND Internal Medicine
DX: Z01.810 Encounter for preprocedural cardiovascular examination (principal); R07.9 Chest pain, unspecified; I11.0 Hypertensive heart disease with heart failure; I50.9 Heart failure, unspecified; E11.9 Type 2 diabetes mellitus without complications; R01.1 Cardiac murmur, unspecified; F17.210 Nicotine dependence, cigarettes, uncomplicated; Z98.84 Bariatric surgery status; Z68.25 Body mass index [BMI] 25.0-25.9, adult
CPT/HCPCS: 93017; J2785; 78452